=== PATIENT | male | born 1945 | race Caucasian/White ===

== ENCOUNTER 2018-10-20 10:04 | Day surgery (SDC) | payer OTHER ==
[2018-10-20] VITALS (9 sets, daily range): BP systolic 131–173; BP diastolic 58–76; PULSE 72–86; RESP 10–20; Ht 158.8 cm; Wt 71.8 kg
[~2018-10-20] VITALS: Ht 158.8 cm; Wt 71.8 kg
[~2018-10-20 10:04] MED LIST: LIDOCAINE 2% (SDV) 5 ML INJ ONE; ONDANSETRON 4 MG INJ ONE; PROPOFOL 200 MG INJ ONE; SEVOFLURANE 15 MIN ONE
[2018-10-20] MEDS ORDERED: AMLO-147 PO (10:40)
[2018-10-20] MEDS ORDERED: METO-407 PO (10:40)
--- NOTE | 2018-10-20 12:35 | PREAC ---
Date/Time of Note Date/Time of Note DATE: 10/20/18 TIME: 12:30 Anesthesia Eval and Record Evaluation Time Pre-Procedure Interview DATE: 10/20/18 TIME: 12:30 Age 72 Sex male NPO: 8 hrs Preoperative diagnosis ESRD Planned procedure LUE AV FISTULA VERSUS GRAFT Past Medical History Past Medical History: Includes Cardio: HTN Endo: Diabetes Neuro: Other (BLIND, DIABETIC RETINOPATHY) Renal: ESRD on dialysis (LAST HD 10/19/18 [facility]IA [facility], K=5.1 TODAY. HAS A FAILED LUE AV FISTULA.) Heme: Anemia Surgery & Anesthesia Issues No known issue Meds Anticoagulation: No Beta Ami within 24 hr: Yes Reported Medications Metoprolol Tartrate* (Lopressor*) 100 Mg Tablet, 100 MG PO BID, #60 TAB 10/20/18 Amlodipine Besylate* (Amlodipine Besylate*) 10 Mg Tablet, 10 MG PO DAILY, #30 TAB 10/20/18 Meds reviewed: Yes Allergies Coded Allergies: No Known Allergy (Unverified , 10/20/18) Allergies Reviewed: Yes Labs/Studies Labs Reviewed: Reviewed by anesthesiologist Result Diagram: 10/20/18 1110 Laboratory Tests 10/20/18 11:10 test: N/A Studies: ECG Pre-procedure Exam Last vitals Vital Signs Date Temp Pulse Resp B/P (MAP) Pulse Ox O2 O2 Flow FiO2 Time Delivery Rate 10/20/18 98.3 72 18 133/65 96 Room Air 11:20 (87) Airway: Adequate mouth opening, Adequate thyromental dist Mallampati: Mallampati II Teeth: Abnormal (FEW MISSING TEETH) Lung: Normal Heart: Normal ASA Physical Status ASA physical status: 3 Emergency: None Planned Anesthetic General/MAC: MAC Nerve block: Brachial plexus (left) Planned Pain Management Single shot nerve block, Parenteral pain med, Local by surgeon Pre-operative Attestations Prior to commencing anesthesia and surgery, the patient was re-evaluated, there was verification of: *The patient's identity *The results of appropriate recent lab work and preoperative vital signs *The above evaluation not changing prior to induction *Anesthetic plan, risk benefits, alternative and complications discussed with patient/family; questions answered; patient/family understands, accepts and wishes to proceed. SIMONA RG Oct 20, 2018 12:35
[2018-10-20] MEDS ORDERED: MIDAZOLAM 1 MG/ML 2 ML INJ ONE (13:36)
[2018-10-20] MEDS ORDERED: FENTAnyl 50 MCG/ML VIAL ONE (13:36)
[2018-10-20] MEDS ORDERED: METOCLOPRAMIDE 10 MG INJ ONE (13:37)
[2018-10-20] MEDS ORDERED: GELATIN SIZE 100 SPONGE ONE (13:41)
[2018-10-20] MEDS ORDERED: THROMBIN (BOVINE) 5,000 UNIT VIAL TP ONE (13:41)
[2018-10-20] MEDS ORDERED: HEPARIN 1000 UNITS/ML 10 ML INJ ONE (13:41)
[2018-10-20] MEDS ORDERED: BUPIVACAINE 0.25% (MPF) 30 ML INJ ONE (13:41)
[2018-10-20] MEDS ORDERED: LIDOCAINE 1% (MPF) 30 ML INJ ONE (13:41)
[2018-10-20] MEDS ORDERED: CEFAZOLIN 1 GM INJ ONE (13:48)
[2018-10-20] MEDS ORDERED: ROPIVACAINE 0.5 % 30 ML VIAL ONE (13:50)
--- NOTE | 2018-10-20 13:56 | HPN ---
Date/Time of Note Date/Time of Note DATE: 10/20/18 TIME: 13:56 Interval H&P Admission Note Pt. seen H&P reviewed: No system changes LUIS DUVAL MD Oct 20, 2018 13:56
[2018-10-20] MEDS ORDERED: HYDROmorphONE 1 MG/5 ML IV SYRINGE IV PRN (14:00)
[2018-10-20] MEDS ORDERED: ONDANSETRON 4 MG INJ IV PRN (14:00)
[2018-10-20] MEDS ORDERED: LEVALBUTEROL (NEB) 1.25 MG/0.5 ML AMP HHN PRN (14:00)
[2018-10-20] MEDS ORDERED: LABETALOL HCL 20MG INJ IV PRN (14:00)
[2018-10-20] MEDS ORDERED: DIPHENHYDRAMINE 50 MG INJ IV PRN (14:00)
[2018-10-20] MEDS ORDERED: hydrALAzine 20 MG INJ IV PRN (14:00)
[2018-10-20] MEDS ORDERED: FENTAnyl 50 MCG/ML VIAL IV PRN ×2 (14:00)
[2018-10-20] MEDS ORDERED: LABETALOL HCL 20MG INJ ONE (15:16)
--- NOTE | 2018-10-20 16:03 | OPR ---
Date/Time of Note Date/Time of Note DATE: 10/20/18 TIME: 16:01 Operative Report Preoperative Diagnosis ESRD Postoperative Diagnosis same Operation/Procedure Performed Left arm basilic vein transposition Surgeon see signature line Salon Stylist Mikel Echeverria PA Anesthesia Type: general Estimated Blood Loss: 10 - 50 ml's Transfusion none Specimen none Grafts/Implants none Complications none Procedure Description Procedure Date: Oct 20, 2018 Preoperative Diagnosis ESRD Postoperative Diagnosis same Operation/Procedure Performed Left arm basilic vein transposition Surgeon see signature line Dr. Vielka Chavarria Salon Stylist Mikel Echeverria PA Anesthesia Type: general Estimated Blood Loss: 10 - 50 ml's Transfusion none Specimen none Grafts/Implants none Tubes/Drains none Complications none Pt Condition Post Procedure: stable Disposition: PACU Indications [facility] HD access Procedure Description The patient was prepped and draped in sterile fashion. The left basilic vein was marked pre-op. The basilic vein was exposed for the length of the arm and carefully from the medial nerve. A skin bridge was left in place. Al l branches were identified, ligated and divided. The basilic vein was exposed and isolated for the length of the arm. Next, the brachial artery was identified in the distal arm. Vessel loop was placed around the brachial artery and from the median nerve as well as the brachial vein. Next electrocautery was used to make a tunnel from the area of the brachial artery to the direct subcutaneous tissue. A Trupti tunneler was passed in this tunnel towards the axilla. Soft tissue was divided and the distended basilic vein was passed through the Trupti tunneler after it was ligated distally. Once the vein was transposed through the newly created tunnel, the Trupti tunneler was removed a bulldog was placed on the basilic vein in the axilla and the vein was again distended. The brachial artery was controlled proximal and distally after the vein was spatulated and cut to an appropriate length. An end-to-side anastomosis was completed between the basilic vein and brachial artery in a circumferential pattern with a 6-0 Prolene suture. The distal clamp was removed as well as the bulldog and the basilic vein to ensure good hemostasis and then the proximal clamp was also removed. An immediate thrill was felt through the fistula and Gelfoam thrombin was used to aid in hemostasis. Once the soft tissue was bluntly dilated allowing the basilic vein to travel through the subcutaneous tissue with a pinching, the deep subcutaneous tissue was closed with a running 2-0 Vicryl suture the subdermal tissue was approximated using interrupted 3-0 Vicryl suture and the skin was closed with a running 4-0 Monocryl subcuticular suture. Sterile dressing was placed and the procedure was terminated. The patient tolerated the procedure well. Copies To: Copies To: CC: HELIO KAHN DO ; LUIS CHAVARRIA MD Oct 20, 2018 13:44 LUIS CHAVARRIA MD Oct 20, 2018 16:03
--- NOTE | 2018-10-21 11:19 | PAC ---
Date/Time of Note Date/Time of Note DATE: 10/21/18 TIME: 11:19 Post-Anesthesia Notes Post-Anesthesia Note Last documented vital signs Vital Signs Date Temp Pulse Resp B/P (MAP) Pulse Ox O2 O2 Flow FiO2 Time Delivery Rate 10/20/18 97.7 86 20 166/76 97 17:38 (106) 10/20/18 Nasal 3.0 17:04 Cannula Activity: WNL Respiratory function: WNL Cardiovascular function: WNL Mental status: Baseline Pain reasonably controlled: Yes Hydration appropriate: Yes Nausea/Vomiting absent: Yes NETO SANTANA MD Oct 21, 2018 11:19
--- NOTE | 2018-10-22 13:36 | RADRPT ---
Vent Rate: 71 bpm RR Interval: 0 msec VT Interval: 134 msec QRS Duration: 86 msec QT Interval: 410 msec QTC Interval: 445 msec P-R-T [place]: 46 - -28 - 86 degrees Normal sinus rhythm Normal ECG Electronically Signed By: Jorge Monzon
== END 2018-10-20 18:25 | disposition home or self-care (01) ==
LOC: SDS 10:04
PROVIDERS: ATTEND Surgery
DX: I12.0 Hypertensive chronic kidney disease with stage 5 chronic kidney disease or end stage renal disease (principal); N18.6 End stage renal disease; E11.9 Type 2 diabetes mellitus without complications
CPT/HCPCS: 36819; 71045; 80053; 82962; 85610; 85730; 93005; J0690; J1644; J2250; J2405; J2765; J2795; J3010; Z7512; Z7610; C1725